=== PATIENT | female | born 1975 | race Caucasian/White ===

== ENCOUNTER 2024-02-24 13:32 | Observation (INO) | payer BC ==
[2024-02-24] MEDS ORDERED: Acetaminophen 325 MG TAB PO PRN (13:53)
[2024-02-24 14:06] VITALS: BMI 35.2
[2024-02-24 15:08] LABS: Troponin I Less than 0.010 ng/mL (< 0.028)
[2024-02-24 17:58] LABS: Cardiac Risk 3.3 (Less than 4.5)
[2024-02-24 17:59] LABS: Troponin I Less than 0.010 ng/mL (< 0.028)
[2024-02-24] MEDS: ALPRAZolam 0.5 MG TAB PO PRN (20:59)
[2024-02-24] MEDS: Nitroglycerin 0.4 MG TAB (25 Tab Bottle) SL PRN (20:59)
[2024-02-25 03:42] LABS: #Basophils 0.11 10x3/uL (0.0-0.2); #Eosinphils 0.43 10x3/uL (0.0-0.5); %Basophils 1.4 % (0.0-2.0); %Eosinophils 5.5 % (0.0-6.0); %Lymphocytes 33.4 % (18.0-47.0); %Monocytes 7.6 % (0.0-10.0); Hemoglobin 12.6 g/dL (12.0-15.5); Mean Corpuscular HGB CONC 34.1 g/dL (32.0-36.0); Mean Corpuscular Hemoglobin 31.7 pg (27.0-33.0); Mean Platelet Volume 9.3 fL (7.4-10.4); Platelet Count 236 10x3/uL (150-450); RBC Distribution Width 13.1 % (11.5-14.5); Red Blood Cell (RBC) Count 3.98 10x6/uL (3.90-5.03); White Blood Cell (WBC) Count 7.9 10x3/uL (3.5-10.5)
[2024-02-25 03:48] LABS: Anion Gap 11 mmol/L (10-20); BUN (Urea Nitrogen) 17 mg/dL (7.0-18.7); Calc. Creatinine Clearance 120 mL/min (70-130); Calcium 8.6 mg/dL (7.8-10.44); Carbon Dioxide 26 mmol/L (22-29); Chloride 105 mmol/L (98-107); Estimated GFR 86; Glucose 82 mg/dL (70-105); Potassium 3.9 mmol/L (3.5-5.1); Sodium 138 mmol/L (136-145)
[2024-02-25] MEDS: Liothyronine Sodium 5 MCG TAB PO SCH (05:39)
[2024-02-25] MEDS: Levothyroxine Sodium 25 MCG TAB PO SCH (05:39)
[2024-02-25] MEDS: Levothyroxine Sodium 112 MCG TAB PO SCH (05:39)
[2024-02-25 08:17] VITALS: BP 119/75; TEMP 98.2
[2024-02-25] MEDS: Pantoprazole DR 40 MG TAB PO SCH (09:21)
[2024-02-26] MEDS ORDERED: Pantoprazole DR 40 MG TAB PO SCH (09:00)
== END 2024-02-25 10:15 | disposition home or self-care (01) ==
LOC: INTOOBSV 13:32 → CSHTELE 13:32
PROVIDERS: ADMIT Internal Medicine; ATTEND Internal Medicine
DX: R07.89 Other chest pain (principal); E03.9 Hypothyroidism, unspecified; F41.9 Anxiety disorder, unspecified; Z90.89 Acquired absence of other organs; Z90.710 Acquired absence of both cervix and uterus; Z90.49 Acquired absence of other specified parts of digestive tract; Z79.899 Other long term (current) drug therapy; Z79.890 Hormone replacement therapy; Z88.8 Allergy status to other drugs, medicaments and biological substances
CPT/HCPCS: 36415; 80048; 80061; 84443; 85025; G0378